=== PATIENT | female | born 1980 | race Caucasian/White ===

== ENCOUNTER 2019-11-05 21:30 | Inpatient (IN) | payer OTHER, SELFPAY ==
[2019-11-05] VITALS (14 sets, daily range): BP systolic 131–146; BP diastolic 81–96; PULSE 65–89; RESP 12–22; TEMP 36.7–36.8; O2SAT 97–100; BMI 29.0
--- NOTE | 2019-11-05 21:56 | ED_ITS ---
Entered by Rose Hernandes, acting as scribe for Stuart Mejia DO Nov 05, 2019 21:30 Documented by User: Cheli Perkins MD 11/06/19 01:31 HPI - Abdominal Pain General: Chief Complaint: Abdominal Pain Stated Complaint: abd pain Time Seen by Provider: 11/05/19 21:56 PFSH ED PFSH: Statuses (acute, chronic, etc) shown below reflect problem list status as previously entered and may not be historically accurate Medical History (Updated 11/06/19 @ 12:09 by Hermelindo Raymundo MD) No active medical problems (Acute) Surgical History (Updated 11/06/19 @ 12:08 by Hermelindo Raymundo MD) No history of previous surgery (Acute) Social History (Updated 11/06/19 @ 06:55 by Hermelindo Raymundo MD) Smoking and tobacco status: current every day smoker Alcohol intake: never Course Vital Signs: Vital signs: Vital Signs Temperature 97.9 F 11/06/19 14:30 Pulse Rate 87 11/06/19 17:10 Respiratory Rate 16 11/06/19 14:55 Blood Pressure 118/78 11/06/19 17:10 Pulse Oximetry 97 11/06/19 17:10 MDM - Abdominal Pain MDM Narrative: Medical decision making narrative: Patient presents with right upper quadrant pain. She does have an elevated white count and CT concerning for possible cholecystitis. I spoke to surgeon Dr. Raymundo will place patient on antibiotics and admit. Patient has been stable while here and has no signs of sepsis. Lab Data: Labs: Lab Results 11/05/19 11/05/19 11/05/19 Range/Units 21:50 21:50 22:05 WBC 17.7 H (4.0-10.0) 10^3/ uL RBC 4.74 (4.1-5.3) 10^6/u L Hgb 14.0 (11.5-15.3) g/dL Hct 41.0 (37.0-47.0) % MCV 86.5 (81-99) fL MCH 29.5 (28.0-34.0) pg MCHC 34.1 (30.0-36.0) g/dL RDW 12.1 (12.1-15.1) % Plt Count 399 (130-400) 10^3/c mm MPV 9.2 (7.4-10.4) fL Neut % (Auto) 80.9 % Lymph % (Auto) 9.5 % Anderson % (Auto) 7.5 % Eos % (Auto) 1.2 % Baso % (Auto) 0.3 % Neut # (Auto) 14.3 H (1.8-7.7) 10^3/u L Lymph # (Auto) 1.7 (0.8-4.8) 10^3/u L Anderson # (Auto) 1.3 H (0.2-0.9) 10^3/u L Eos # (Auto) 0.2 (0.0-0.8) 10^3/u L Baso # (Auto) 0.1 (0.0-0.1) 10^3/u L Nucleated RBC % (a uto) 0 % Nucleated RBCs # 0.0 /100WBC Sodium 138 (136-145) mmol/L Potassium 3.8 (3.5-5.1) mmol/L Chloride 100 (98-107) mmol/L Carbon Dioxide 26 (22-29) mmol/L Anion Gap 15.8 (5-19) BUN 12 (6-20) mg/dL Creatinine 0.6 (0.5-0.9) mg/dL GFR Calculation 110.2 (90-130) mL/min Glucose 118 H (74-109) mg/dL Calcium 9.9 (8.5-10.5) mg/dL Total Bilirubin 0.6 (0.15-1.2) mg/dL AST 18 (0-32) U/L ALT 16 (0-33) U/L Alkaline Phosphata se 68 (35-105) IU/L Total Protein 7.8 (6.6-8.7) g/dL Albumin 4.8 (3.5-5.2) g/dL Globulin 3.0 (1.3-4.6) g/dL Lipase 16 (13-60) U/L Urine Color Yellow (Yellow) Urine Appearance Sl hazy (CLEAR) Urine pH 5 (5-7) Ur Specific Gravit y 1.025 (1.005-1.030) Urine Protein Neg (Negative) Urine Glucose (UA) Norm (Normal) Urine Ketones 2+ H (Negative) Urine Occult Blood 3+ H (Negative) Urine Nitrate Negative (Negative) Urine Bilirubin Neg (NEGATIVE) Urine Urobilinogen Norm (Negative) mg/dL Ur Leukocyte Dominique ase Trace H (Negative) Urine RBC 10-15 H (0-2) /hpf Urine WBC 5-10 H (0-5) /hpf Ur Squamous Epith Cells 0-4 H (0-5) Urine Bacteria 2+ H (NONE) Urine Mucus 1+ Imaging Data ^: CT Abd/Pel: Radiologist's impression: Ordering Provider/Ordering MD: Stuart Mejia DO Date of Service: 11/05/19 Procedure(s): CT kidney stone 93174 Accession Number(s): [id number] Report Number: [id number] PROCEDURE INFORMATION: Exam: CT Abdomen And Pelvis Without Contrast Exam date and time: 11/05/2019 11:32 PM Age: 39 years old Clinical indication: Abdominal pain; Localized; Right upper quadrant (ruq); Additional info: Hematuria/r flank pain TECHNIQUE: Imaging protocol: Computed tomography of the abdomen and pelvis without contrast. Total DLP: 1027.74 mGy-cm Radiation optimization: All CT scans at this facility use at least one of these dose optimization techniques: automated exposure control; mA and/or kV adjustment per patient size (includes targeted exams where dose is matched to clinical indication); or iterative reconstruction. COMPARISON: No relevant prior studies available. FINDINGS: Lungs: There is subsegmental atelectasis in the lung bases. Liver: The liver is normal. Gallbladder and bile ducts: The gallbladder is dilated. The wall is subtly thickened. The common bile duct is mildly dilated measuring up to 11 mm diameter. No choledocholithiasis. Small dependent calcified stones are seen in the gallbladder lumen. Pancreas: The pancreas is unremarkable. Spleen: The spleen is unremarkable. Adrenals: The adrenal glands are unremarkable. Kidneys and ureters: There is a nonobstructive stone in the right kidney. There is a nonobstructive stone in the left kidney. There is no hydronephrosis or ureteral dilation. Stomach and bowel: The stomach is unremarkable. The small bowel is nondilated. There is no sign of inflammation. The colon is unremarkable. Appendix: The appendix is normal. Intraperitoneal space: There is no free air or significant intraperitoneal free fluid. Vasculature: The aorta is unremarkable. There is no aneurysm. Lymph nodes: There is no lymphadenopathy in the retroperitoneum, mesentery, pelvis or inguinal regions. Bladder: The urinary bladder is unremarkable. Reproductive: The uterus is unremarkable. There is no adnexal mass or large cyst. Bones/joints: Bones are unremarkable. Soft tissues: The abdominal wall is intact. CT/CT kidney stone [id number] IMPRESSION: 1. Dilated gallbladder containing stones with subtle wall thickening. These findings are suspicious for acute cholecystitis. 2. Bilateral nonobstructive nephrolithiasis. Discharge Plan Discharge Patient Disposition: Admitted As Inpatient Admit Provider: Hermelindo Raymundo Clinical Impression: Cholecystitis Condition: Stable Discharge Orders: Discharge Order (Routine); Ordered 11/06/19 Ordered By: Hermelindo Raymundo Referrals: Renate Meeks MD [Primary Care Provider] - Hermelindo Raymundo MD [Physician] - 7-10 days Discharge Diet: Advance as tolerated Discharge Activity: Limit activity as instructed Patient Instructions: Cholecystitis (DC) Additional Instructions: No lifting over 20 pounds, no repetitive bending or twisting, no strenuous pushing / pulling or other heavy activity. Ambulate regularly. May go up and down steps if needed. Nursing: Please call Dr. Raymundo's office ([phone]) and make an appointment for the patient to be seen next week. 1. Discharge to home today. 2. Appointment to see Dr. Raymundo in 7 days. 3. Bandages / bandaids off tomorrow, leave Steri-Strip(s) on, may shower. Discharge Date/Time: 11/06/19 07:20 Coding Level of Care Code ED Second Floor Operator for Chg Fwd Exam Problem Focused Documented by User: Stuart Mejia DO 11/07/19 13:16 HPI - Abdominal Pain General: Chief Complaint: Abdominal Pain Stated Complaint: abd pain Time Seen by Provider: 11/05/19 21:56 Source: patient Mode of arrival: ambulatory History of Present Illness: HPI narrative: 39 y/o female presents to the ED with complaint of RUQ pain. Pt states the pain moves into her back. She denies hx of kidney stones. Pt states she does not have pain with urination or blood in her urine. This has,reportedly, been going on since May 2019. elicited complaint: abdominal pain Location: RUQ Severity: moderate Radiation: back Exacerbating factors: movement Relieving factors: nothing Associated Symptoms: Denies chills, coffee ground emesis, constipation, GI cramping, diarrhea, dysuria, fever(s), heartburn, hematochezia, hematuria, hematemesis, melena, nausea, syncope and vomiting Review of Systems Const: Denies: fever, chills, body aches, fatigue, malaise or night sweats Eyes: Denies: change in vision or blurry vision ENMT: Denies: throat pain, oral sores/lesions, dental pain, nasal discharge or nasal congestion Card: Denies: chest pain, palpitations, irregular heart rhythm, edema, syncope, shortness of breath on exertion, shortness of breath when lying down or leg pain with exertion Resp: Denies: shortness of breath, productive cough, non-productive cough or wheezing GI: Reports: abdominal pain; Denies: nausea, vomiting, vomiting blood, coffee grounds in vomit, difficulty swallowing, heartburn/indigestion, diarrhea, constipation, cramping, blood in stool or black tarry stool : Denies: painful urination, urinary frequency, urinary urgency, urinary incontinence or blood in urine Musc: Reports: back pain; Denies: neck pain, extremity pain, extremity swelling, joint pain or joint swelling Skin/Breast: Denies: rash, itching or redness Neuro: Denies: headache, numbness in extremities, weakness in extremities, changes in sensation, lack of coordination, difficulty walking, frequent falls, dizziness, vertigo or confusion Psych: Denies: anxiety, depression, loss of interest, visual hallucinations, auditory hallucinations, suicidal ideation or homicidal ideation Endo: Denies: excessive urination, excessive thirst, tired all the time or cold intolerance Scott/Lymph: Denies: easy bruising, easy bleeding, petechiae, enlarged lymph nodes or tender lymph nodes PFSH ED PFSH: Statuses (acute, chronic, etc) shown below reflect problem list status as previously entered and may not be historically accurate Medical History (Updated 11/06/19 @ 12:09 by Hermelindo Raymundo MD) No active medical problems (Acute) Surgical History (Updated 11/06/19 @ 12:08 by Hermelindo Raymundo MD) No history of previous surgery (Acute) Social History (Updated 11/06/19 @ 06:55 by Hermelindo Raymundo MD) Smoking and tobacco status: current every day smoker Alcohol intake: never Physical Exam Const: COMMON NORMALS: oriented x3 and alert GENERAL APPEARANCE: cooperative, well kempt and well developed; not comfortable NUTRITIONAL APPEARANCE: overweight ORIENTATION/CONSCIOUSNESS: Yes awake, Yes oriented to person and Yes oriented to place HENMT: COMMON NORMALS: normocephalic, head/scalp atraumatic, external ears normal, EAC's normal, TM's normal bilaterally, external nose normal, moist oral mucous membranes and oropharynx normal HEAD & SCALP: normocephalic and atraumatic NOSE: external nose normal EXTERNAL EAR: Yes external ears normal EXTERNAL AUDITORY CANAL: EAC's normal TYMPANIC MEMBRANE: TM's normal bilaterally MOUTH: oral and palatal mucosa normal, lip normal and tongue normal THROAT: posterior oropharynx normal and tonsils normal Eye: COMMON NORMALS: PERRL, EOMs intact bilaterally, conjunctivae normal and no scleral icterus CONJUNCTIVA: Yes conjunctivae normal PUPIL: Yes PERRL Neck/C-Spine: COMMON NORMALS: full ROM, no lymphadenopathy, supple, no meningeal signs and thyroid normal THYROID: thyroid normal and asymmetrical Lymph: LYMPHATIC: no lymphadenopathy noted Resp: COMMON NORMALS: normal respiratory effort, no retractions, no use of accessory muscles and clear to auscultation bilaterally AUSCULTATION: clear to auscultation bilaterally Cardio: COMMON NORMALS: regular rate and regular rhythm RATE: regular rate RHYTHM: regular rhythm HEART SOUNDS: no murmurs GI: COMMON NORMALS: soft to palpation and no hepatosplenomegaly AUSCULTATION: Yes normoactive bowel sounds PALPATION: Yes soft, Yes tender Details: RUQ and other (epigastric) and Yes no hepatosplenomegaly Extremity: COMMON NORMALS: no clubbing, cyanosis or edema, no calf tenderness and no pedal edema Neuro: COMMON NORMALS: oriented x3 SENSORIUM/ORIENTATION: Yes alert, Yes oriented to person and Yes oriented to place MENINGEAL SIGNS: Yes no meningeal signs Psych: APPEARANCE: Yes well kempt Skin: COMMON NORMALS: no rashes or lesions noted and skin turgor normal GENERAL SKIN EXAM: no rashes or lesions noted and turgor normal Course ED course: Care transferred to Dr. Perkins at change of shift Vital Signs: Vital signs: Vital Signs Temperature 97.9 F 11/06/19 14:30 Pulse Rate 87 11/06/19 17:10 Respiratory Rate 16 11/06/19 14:55 Blood Pressure 118/78 11/06/19 17:10 Pulse Oximetry 97 11/06/19 17:10 MDM - Abdominal Pain Lab Data: Labs: Lab Results 11/05/19 11/05/19 11/05/19 Range/Units 21:50 21:50 22:05 WBC 17.7 H (4.0-10.0) 10^3/ uL RBC 4.74 (4.1-5.3) 10^6/u L Hgb 14.0 (11.5-15.3) g/dL Hct 41.0 (37.0-47.0) % MCV 86.5 (81-99) fL MCH 29.5 (28.0-34.0) pg MCHC 34.1 (30.0-36.0) g/dL RDW 12.1 (12.1-15.1) % Plt Count 399 (130-400) 10^3/c mm MPV 9.2 (7.4-10.4) fL Neut % (Auto) 80.9 % Lymph % (Auto) 9.5 % Anderson % (Auto) 7.5 % Eos % (Auto) 1.2 % Baso % (Auto) 0.3 % Neut # (Auto) 14.3 H (1.8-7.7) 10^3/u L Lymph # (Auto) 1.7 (0.8-4.8) 10^3/u L Anderson # (Auto) 1.3 H (0.2-0.9) 10^3/u L Eos # (Auto) 0.2 (0.0-0.8) 10^3/u L Baso # (Auto) 0.1 (0.0-0.1) 10^3/u L Nucleated RBC % (a uto) 0 % Nucleated RBCs # 0.0 /100WBC Sodium 138 (136-145) mmol/L Potassium 3.8 (3.5-5.1) mmol/L Chloride 100 (98-107) mmol/L Carbon Dioxide 26 (22-29) mmol/L Anion Gap 15.8 (5-19) BUN 12 (6-20) mg/dL Creatinine 0.6 (0.5-0.9) mg/dL GFR Calculation 110.2 (90-130) mL/min Glucose 118 H (74-109) mg/dL Calcium 9.9 (8.5-10.5) mg/dL Total Bilirubin 0.6 (0.15-1.2) mg/dL AST 18 (0-32) U/L ALT 16 (0-33) U/L Alkaline Phosphata se 68 (35-105) IU/L Total Protein 7.8 (6.6-8.7) g/dL Albumin 4.8 (3.5-5.2) g/dL Globulin 3.0 (1.3-4.6) g/dL Lipase 16 (13-60) U/L Urine Color Yellow (Yellow) Urine Appearance Sl hazy (CLEAR) Urine pH 5 (5-7) Ur Specific Gravit y 1.025 (1.005-1.030) Urine Protein Neg (Negative) Urine Glucose (UA) Norm (Normal) Urine Ketones 2+ H (Negative) Urine Occult Blood 3+ H (Negative) Urine Nitrate Negative (Negative) Urine Bilirubin Neg (NEGATIVE) Urine Urobilinogen Norm (Negative) mg/dL Ur Leukocyte Dominique ase Trace H (Negative) Urine RBC 10-15 H (0-2) /hpf Urine WBC 5-10 H (0-5) /hpf Ur Squamous Epith Cells 0-4 H (0-5) Urine Bacteria 2+ H (NONE) Urine Mucus 1+ Discharge Plan Discharge Patient Disposition: Admitted As Inpatient Admit Provider: Hermelindo Raymundo Clinical Impression: Cholecystitis Condition: Stable Discharge Orders: Discharge Order (Routine); Ordered 11/06/19 Ordered By: Hermelindo Raymundo Referrals: Renate Meeks MD [Primary Care Provider] - Hermelindo Raymundo MD [Physician] - 7-10 days Discharge Diet: Advance as tolerated Discharge Activity: Limit activity as instructed Patient Instructions: Cholecystitis (DC) Additional Instructions: No lifting over 20 pounds, no repetitive bending or twisting, no strenuous pushing / pulling or other heavy activity. Ambulate regularly. May go up and down steps if needed. Nursing: Please call Dr. Raymundo's office ([phone]) and make an appointment for the patient to be seen next week. 1. Discharge to home today. 2. Appointment to see Dr. Raymundo in 7 days. 3. Bandages / bandaids off tomorrow, leave Steri-Strip(s) on, may shower. Discharge Date/Time: 11/06/19 07:20 Coding Level of Care Code ED Second Floor Operator for Chg Fwd Exam Problem Focused The documentation recorded by the Cecilio whitfield Ashley, accurately reflects the service I personally performed and the decisions made by Roberto merchant Curtis L, Nov 05, 2019 21:30
[2019-11-05 22:23] LABS: Basophils # 0.1 10^3/uL (0.0-0.1); Basophils % 0.3 %; Eosinophils # 0.2 10^3/uL (0.0-0.8); Eosinophils % 1.2 %; Lymphocytes # 1.7 10^3/uL (0.8-4.8); Lymphocytes % 9.5 %; Mean Corpuscular HGB Conc 34.1 g/dL (30.0-36.0); Mean Corpuscular Hemoglobin 29.5 pg (28.0-34.0); Mean Corpuscular Volume 86.5 fL (81-99); Mean Platelet Volume 9.2 fL (7.4-10.4); Monocytes # 1.3 10^3/uL (0.2-0.9); Monocytes % 7.5 %; Neutrophils # 14.3 10^3/uL (1.8-7.7); Neutrophils % 80.9 %; Nucleated Red Blood Cells % 0 %; Platelet Count 399 10^3/cmm (130-400); Red Blood Count 4.74 10^6/uL (4.1-5.3); Red Cell Distribution Width 12.1 % (12.1-15.1); White Blood Count 17.7 10^3/uL (4.0-10.0)
[2019-11-05 22:38] LABS: Alanine Aminotransferase 16 U/L (0-33); Albumin Level 4.8 g/dL (3.5-5.2); Alkaline Phosphatase 68 IU/L (35-105); Anion Gap 15.8 (5-19); Aspartate Amino Transferase 18 U/L (0-32); Blood Urea Nitrogen 12 mg/dL (6-20); Calcium 9.9 mg/dL (8.5-10.5); Carbon Dioxide 26 mmol/L (22-29); Chloride 100 mmol/L (98-107); Glomerular Filtration Rate 110.2 mL/min (90-130); Glucose 118 mg/dL (74-109); Lipase 16 U/L (13-60); Potassium 3.8 mmol/L (3.5-5.1); Sodium 138 mmol/L (136-145); Total Bilirubin 0.6 mg/dL (0.15-1.2); Total Protein 7.8 g/dL (6.6-8.7)
[2019-11-05 22:38] LABS: Bilirubin Urine Neg (NEGATIVE); Blood Urine 3+ (Negative); Glucose Urine UA Norm (Normal); Ketones Urine 2+ (Negative); Nitrate Urine Negative (Negative); Protein Urine Neg (Negative); Specific Gravity, Urine 1.025 (1.005-1.030); Urine Appearance SL Hazy (CLEAR); Urine Color Yellow (Yellow); pH Urine 5 (5-7)
[2019-11-05 22:39] LABS: Add Urine Microscopic? YES; Leukocyte Esterase Urine Trace (Negative); Urobilinogen Urine Norm (Negative)
[2019-11-05 22:52] LABS: Bacteria Urine 2+; Mucus Urine 1+
[2019-11-05 22:53] LABS: Add Urine Culture? Yes; Squamous Epithelial Cell Urine 0-4 (0-5)
[2019-11-05] MEDS: morphine 4 mg/mL SDV 1 mL IVP (22:59)
[2019-11-05] MEDS: diphenhydrAMINE 50 mg/mL SDV 1mL 25 MG IVP (22:59)
[2019-11-05] MEDS: ondansetron 2 mg/ML SDV 2 mL 4 MG IVP (22:59)
[2019-11-05] MEDS: hydrocortisone 100 mg/2 mL SDV IVP (23:00)
[2019-11-05] MEDS: sodium chlor 0.9% + KCl 20 mEq 20 MEQ/1,000 ML BAG 125 MEQ IV (23:07)
[2019-11-05] MEDS: sodium chloride 0.9% 1,000 ML 999 ML IV (23:08)
--- NOTE | 2019-11-05 23:12 | CTR_ITS ---
PROCEDURE INFORMATION: Exam: CT Abdomen And Pelvis Without Contrast Exam date and time: 11/05/2019 11:32 PM Age: 39 years old Clinical indication: Abdominal pain; Localized; Right upper quadrant (ruq); Additional info: Hematuria/r flank pain TECHNIQUE: Imaging protocol: Computed tomography of the abdomen and pelvis without contrast. Total DLP: 1027.74 mGy-cm Radiation optimization: All CT scans at this facility use at least one of these dose optimization techniques: automated exposure control; mA and/or kV adjustment per patient size (includes targeted exams where dose is matched to clinical indication); or iterative reconstruction. COMPARISON: No relevant prior studies available. FINDINGS: Lungs: There is subsegmental atelectasis in the lung bases. Liver: The liver is normal. Gallbladder and bile ducts: The gallbladder is dilated. The wall is subtly thickened. The common bile duct is mildly dilated measuring up to 11 mm diameter. No choledocholithiasis. Small dependent calcified stones are seen in the gallbladder lumen. Pancreas: The pancreas is unremarkable. Spleen: The spleen is unremarkable. Adrenals: The adrenal glands are unremarkable. Kidneys and ureters: There is a nonobstructive stone in the right kidney. There is a nonobstructive stone in the left kidney. There is no hydronephrosis or ureteral dilation. Stomach and bowel: The stomach is unremarkable. The small bowel is nondilated. There is no sign of inflammation. The colon is unremarkable. Appendix: The appendix is normal. Intraperitoneal space: There is no free air or significant intraperitoneal free fluid. Vasculature: The aorta is unremarkable. There is no aneurysm. Lymph nodes: There is no lymphadenopathy in the retroperitoneum, mesentery, pelvis or inguinal regions. Bladder: The urinary bladder is unremarkable. Reproductive: The uterus is unremarkable. There is no adnexal mass or large cyst. Bones/joints: Bones are unremarkable. Soft tissues: The abdominal wall is intact. CT/CT kidney stone [id number] IMPRESSION: 1. Dilated gallbladder containing stones with subtle wall thickening. These findings are suspicious for acute cholecystitis. 2. Bilateral nonobstructive nephrolithiasis. Radiation Dose CTDIVOL = (mGy): DLP = 1027.74 (mGy-cm)
[2019-11-06] VITALS (59 sets, daily range): BP systolic 113–143; BP diastolic 68–91; PULSE 74–102; RESP 14–25; TEMP 36.6–37.4; O2SAT 94–100
[2019-11-06] MEDS: morphine 4 mg/mL SDV 1 mL IVP ×6 (00:05→10:30)
[2019-11-06] MEDS: levofloxacin-dextrose 5 % 750 MG/150 ML PREMIX 150 MG IV (00:45)
--- NOTE | 2019-11-06 06:20 | PC.NURSE ---
report called to shaina on
--- NOTE | 2019-11-06 06:32 | P.HP_ITS ---
Providers/Chief Complaint Admitting Physician: Hermelindo Raymundo MD Primary Care Provider: Renate Meeks MD Chief Complaint: CHOLECYSTIS History of Present Illness Clark Burrows is a 39 year old female who began having problems with upper abdominal pain perhaps 6 months ago. She said she noticed after she would eat or drink certain things that she would develop pain in the epigastrium or the right upper quadrant and have a pressure sensation with some bloating. She and her doctor initially thought this might be some gastric problems and so she has been on a proton pump inhibitor intermittently over the past several months. It got to the point where it was obvious it was not working. Her symptoms have gotten worse over the past week. She said that she developed right upper quadrant pain that went around to the right side of her back and about a week ago and basically has never gotten better. While she denies fever or chills, she has had multiple episodes of vomiting. She denies hematemesis. Review of Systems General: Reports: 10 or more systems reviewed and unremarkable except in HPI and below Const: Denies: fever GI: Reports: abdominal pain, nausea and vomiting; Denies: vomiting blood or change in stool character Medications/Allergies Allergies Allergy/AdvReac Type Severity Reaction Status Date / Time Penicillins Allergy ADR-Itching Verified 11/05/19 21:37 iv contrast dye Allergy ALGY-Swell Uncoded 11/05/19 21:37 Lip/Tongue/Throat PFSH Acute PFSH: Statuses (acute, chronic, etc) shown below reflect problem list status as previously entered and may not be historically accurate Medical History (Updated 11/06/19 @ 06:52 by Hermelindo Raymundo MD) No active medical problems (Acute) Surgical History (Updated 11/06/19 @ 06:52 by Hermelindo Raymundo MD) History of tubal ligation (Acute) Social History (Updated 11/06/19 @ 06:55 by Hermelindo Raymundo MD) Smoking and tobacco status: current every day smoker Alcohol intake: never Vitals/I&O/Wt Last Vital Signs Temp 98.2 F 11/05/19 21:44 Pulse 99 11/06/19 06:00 Resp 18 11/06/19 06:00 BP 127/75 11/06/19 06:00 Pulse Ox 98 11/06/19 06:00 11/05/19 11/05/19 11/06/19 14:59 22:59 06:59 Intake Total 1150 / 1150 Balance 1150 / 1150 Weight last 48 hrs Weight 164 lb Physical Exam Narrative: EXAM NARRATIVE: The patient was encountered in the emergency room awaiting a bed on the medical surgical floor. She appears as if she is not feeling well. The pupils are equal. No carotid bruits are heard. Lungs are clear. The heart is regular. The abdomen reveals hypoactive bowel sounds. She has significant tenderness in the right upper quadrant with a positive Holly sign. No obvious masses are palpated. The extremities reveal no edema. Neurologically the patient appears to be grossly intact. Data : 11/05/19 21:50 11/05/19 21:50 Other Labs: Laboratory Tests 11/05/19 21:50 Total Bilirubin 0.6 AST 18 ALT [address] Abd/Pel: Radiologist's impression: IMPRESSION: 1. Dilated gallbladder containing stones with subtle wall thickening. These findings are suspicious for acute cholecystitis. 2. Bilateral nonobstructive nephrolithiasis A&P Assessment and plan (1) Acute cholecystitis due to biliary calculus: I discussed gallbladder disease, cholelithiasis and cholecystitis with the patient. We discussed surgical and attempted conservative methods of m anagement. Surgical risks of bleeding, infection, internal organ injury, chances of an open procedure, postoperative bowel habit changes, etc. were all gone over. The patient seems to understand and would like to proceed with a cholecystectomy. Status: Acute Code(s): K80.00 - Calculus of gallbladder with acute cholecystitis without obstruction Attestations Medical Necessity Statement*: Based on my medical assessment, presenting symptoms, medical accuity and consideration of surgical therapy, I expect this patient will require treatment in the hospital for a period spanning at least 2 midnights. Coding Level of Care Code Acute Forge Operator Helper for Kierra Oleary Diagnoses Acute cholecystitis due to biliary calculus K80.00
--- NOTE | 2019-11-06 06:46 | PC.NURSE ---
dr capps to bedside. reviewed hx and poc at length. questions answered.
[2019-11-06] MEDS: sodium chloride 0.9% 1,000 ML 100 ML IV (08:30)
[2019-11-06] MEDS: ondansetron 2 mg/ML SDV 2 mL 4 MG IVP (08:46)
--- NOTE | 2019-11-06 09:41 | P.ANESASSM_ITS ---
Pre-Anesthetic Assessment Pre-Anesthetic Assessment: Height/Weight: Height 1.6 m Weight 74.389 kg Temp Pulse Resp BP Pulse Ox 98.6 F 78 17 143/83 100 11/06/19 08:18 11/06/19 08:18 11/06/19 08:30 11/06/19 08:18 11/06/19 08:18 Proposed Procedure: Operation Date: 11/06/19 16:30 Proposed Procedures p Laparoscopic Cholecystectomy(Not Applicable) - Hermelindo Raymundo MD Familial anesthetic complications: No history of anesthesia, no family complications Was Beta Roxana taken within 24 hours: N/A Social: Social History: No alcohol and No tobacco Exam: Pre-Anes Outpt Exam: alert, oriented x 3, clear to auscultation bilaterally and regular rate & rhythm Airway: Cervical ROM: WNL MP: 2 Dentition: Full Pulmonary: Pulmonary: None reported CV/HEM: CV/HEM: None reported : : None reported Hepatic: Hepatic: None reported GI: GI: None reported Metabolic: Metabolic: None reported Musc/skel: Musc/skel: None reported Neuropsych: Neuropsych: None reported Anesthetic Plan: ASA status: II Anesthesia: General Meds/Allergies Current Medications: Current Medications Generic Name Dose Route Start Last Admin Trade Name Freq PRN Reason Stop Dose Admin Potassium Chloride /Sodium Chloride 20 meq in 1,000 m ls @ 125 mls/hr 11/05/19 22:15 11/05/19 23:07 Sodium Chlor 0.9 % + Kcl 20 Meq IV 125 mls/hr .Q8H AMPARO Administration Sodium Chloride 1,000 mls @ 100 m ls/hr 11/06/19 07:30 11/06/19 08:30 Sodium Chloride 0.9% IV 100 mls/hr .Q10H AMPARO Administration Morphine Sulfate 4 mg 11/06/19 07:30 11/06/19 08:30 Morphine IVP 4 mg Q2H PRN Administration SEVERE PAIN Ondansetron HCl 4 mg 11/06/19 07:30 11/06/19 08:46 Zofran IVP 4 mg Q6H PRN Administration NAUSEA AND VOMITI NG PFSH Anesthesia PFSH: Medical History (Updated 11/06/19 @ 06:52 by Hermelindo Raymundo MD) No active medical problems (Acute) Surgical History (Updated 02/04/20 @ 06:52 by Hermelindo Raymundo MD) History of tubal ligation (Acute) Social History (Updated 11/06/19 @ 06:55 by Hermelindo Raymundo MD) Smoking and tobacco status: current every day smoker Alcohol intake: never Data Anesthesia CBC & Chem 7: 11/05/19 21:50 11/05/19 21:50 Other Labs: Laboratory Results - last 48 hr 11/05/19 11/05/19 11/05/19 21:50 21:50 22:05 WBC 17.7 H RBC 4.74 Hgb 14.0 Hct 41.0 MCV 86.5 MCH 29.5 MCHC 34.1 RDW 12.1 Plt Count 399 MPV 9.2 Neut % (Auto) 80.9 Lymph % (Auto) 9.5 [place] % (Auto) 7.5 Eos % (Auto) 1.2 Baso % (Auto) 0.3 Neut # (Auto) 14.3 H Lymph # (Auto) 1.7 [place] # (Auto) 1.3 H Eos # (Auto) 0.2 Baso # (Auto) 0.1 Nucleated RBC % (auto) 0 Nucleated RBCs # 0.0 Sodium 138 Potassium 3.8 Chloride 100 Carbon Dioxide 26 Anion Gap 15.8 BUN 12 Creatinine 0.6 GFR Calculation 110.2 Glucose 118 H Calcium 9.9 Total Bilirubin 0.6 AST 18 ALT 16 Alkaline Phosphatase 68 Total Protein 7.8 Albumin 4.8 Globulin 3.0 Lipase 16 Urine Color Yellow Urine Appearance Sl hazy Urine pH 5 Ur Specific [place] 1.025 Urine Protein Neg Urine Glucose (UA) Norm Urine Ketones 2+ H Urine Occult Blood 3+ H Urine Nitrate Negative Urine Bilirubin Neg Urine Urobilinogen Norm Ur Leukocyte Esterase Trace H Urine RBC 10-15 H Urine WBC 5-10 H Ur Squamous Epith Cells 0-4 H Urine Bacteria 2+ H Urine Mucus 1+ Cardiac Studies: No Data to Display
--- NOTE | 2019-11-06 11:49 | PC.NURSE ---
Pt to OR at this time for scheduled procedure
[2019-11-06] MEDS: sodium chloride 0.9% 1,000 ML 30 ML IV (12:00)
[2019-11-06 12:13] LABS: OR HCG Qualitative Urine Negative (Negative)
[2019-11-06] MEDS: clindamycin 900 MG/50 ML PREMIX 100 MG IV (12:13)
--- NOTE | 2019-11-06 12:54 | SUR.OPER ---
1230 - Pt's mom notified of surgery start via her cell phone.
--- NOTE | 2019-11-06 13:09 | PM.OP ---
Operative Report Date of procedure: November 06, 2019 Pre-op Diagnosis: Acute calculus cholecystitis. Post-op diagnosis: same Procedure Done: Laparoscopic cholecystectomy. Specimens removed/disposition: Gallbladder. Surgeon: Hermelindo Raymundo Anesthesia: General Estimated blood loss (mL): 25 Complications: None. Condition: stable Disposition: PACU Procedure: The patient was brought to the Operating Room and was placed in a supine position on the Operating Room table. General endotracheal anesthesia was induced. The abdomen was prepped and draped in a sterile fashion. A small vertical incision was carried out in the inferior aspect of the umbilicus. Blunt dissection was carried out down to the fascia, which was grasped with a Gene clamp. A stay suture of 0 Vicryl was placed on either side of the midline and the midline fascia was incised. The underlying peritoneum was opened bluntly and the Rob port was placed directly into the peritoneal cavity and was held in place with the inflatable balloon. The peritoneal cavity was insufflated with carbon dioxide. The laparoscope was used to inspect the abdominal cavity. The gallbladder was seen to be inflamed and distended. No other gross abnormalities were initially noted. A 5 millimeter port was placed in the epigastrium under direct vision. Two 5-millimeter ports were placed on the right side of the abdomen under direct vision. The gallbladder was very distended and a syringe and laparoscopic needle were used to remove 60 mL of somewhat cloudy yellow fluid from the gallbladder lumen to decompress it somewhat. The gallbladder was then grasped and was elevated. The gallbladder had some subacute adhesions to the body and infundibular region. These were taken down using blunt dissection with some cautery to maintain hemostasis. Blunt dissection and hydrodissection were carried out in the infundibular region of the gallbladder and the cystic duct and cystic artery were identified. The gallbladder was partially removed from the liver bed using cautery and the spatula to confirm the anatomy before the structures were clipped and divided. The gallbladder was then removed from the liver bed using cautery and the spatula. The plane between the gallbladder and the liver bed was very edematous and oozed somewhat throughout the procedure. A small hole was inadvertently made in the gallbladder during the dissection but no stones were seen to have been lost. After the gallbladder had been removed from the liver bed, the laparoscope was moved to the epigastric port and the gallbladder was removed from the peritoneal cavity through the umbilical port site after being placed in a laparoscopic bag. The stay sutures of Vicryl were tied to each other at the umbilicus. An additional figure of 0 Vicryl was placed, closing the defect so that it was airtight. The perihepatic spaces were irrigated with saline and the liver bed was reinspected. No ongoing problems were seen. The remaining ports were removed from the abdominal wall and the pneumoperitoneum was evacuated. All skin incisions were closed using inverted interrupted sutures of 4-0 Vicryl. Benzoin and Steri-Strips were placed over the incisions and Band-Aids followed. The patient was taken to the Recovery Area in stable condition postoperatively.
--- NOTE | 2019-11-06 13:22 | SUR.PHASEI ---
1319 PATIENT TO PACU AT THIS TIME VIA GURNEY FROM OR. RR EVEN AND UNLABORED. PLACED ON SIMPLE MASK AT 8L, SPO2 100%. PATIENT NOTED TO HAVE 4 STABS TO ABDOMEN, CLOSED WITH EXOFIN.
--- NOTE | 2019-11-06 14:01 | SUR.PHASEI ---
1347 PATIENT TO MED SURG VIA [facility]. DROWSY, ANSWERS ALL QUESTIONS APPROPRIATE. PATIENT AMBULATORY FROM GURNEY TO BED. 4 STABS, COVERED WITH BANDAIDS, CDI.
[2019-11-06] MEDS: dextrose 5%-sod chloride 0.45% 1,000 ML 100 ML IV (14:11)
--- NOTE | 2019-11-06 14:13 | PC.CHAP ---
Pastoral Care Encounter/Spiritual Assessment Type of Contact [] Declined radar repairer visit [] Patient/Family/Request visit [] Outpatient visit [] Follow-up visit [] Physician referral [] Code/Alert [] Routine visit [] Staff referral [] Actively dying [] Patient sleeping [] Family support [] [] Out of room [] Palliative care [] [] Receiving care in room [] Pre-surgical visit [] Trauma [] Long length of stay [] ICU visit [] Other: Relational/Emotional Strength [] Patient feels connected with others/family/visitors/staff [] Distress [] Loneliness/isolation [] Abandonment Spirituality of Patient [] Person of Kath [] Attends Yarsani of their Kath [] Believes in Prayer [] Reads Bible or Congregational materials [] There are Spiritual issues to be addressed Manager Combination Interventions [] Prayer [] Active listening [] Non-anxious presence [] Spiritual/emotional support [] Crisis/trauma care [] Spiritual counseling [] Bereavement support [] Provided bereavement packet [] Provided Bible/devotional materials [] Provided toy/stuffed animal, coloring book to patient or family member [] Provided Communion [] Anointing/Holland [] Salvation [] Completed spiritual assessment [] Other: Impact on Illness or Injury [] Angry [] Fearful [] Anxious [] Often cries [] Exhaustion [] Unable to work [] Unable to attend mu-ism [] Unable to walk/stand [] Unable to read [] Unable to drive [] Unable to eat/drink [] Unable to sleep [] Unable to be with family [] Patient intubated [] Other: Summary Time spent with patient Pastoral Care Encounter/Spiritual Assessment Type of Contact [] Declined radar repairer visit [] Patient/Family/Request visit [] Outpatient visit [] Follow-up visit [] Physician referral [] Code/Alert [] Routine visit [] Staff referral [] Actively dying [] Patient sleeping [] Family support [] [] Out of room [] Palliative care [] [] Receiving care in room [] Pre-surgical visit [] Trauma [] Long length of stay [] ICU visit [] Other: Relational/Emotional Strength [] Patient feels connected with others/family/visitors/staff [] Distress [] Loneliness/isolation [] Abandonment Spirituality of Patient [] Person of Kath [] Attends Yarsani of their Kath [] Believes in Prayer [] Reads Bible or Congregational materials [] There are Spiritual issues to be addressed Manager Combination Interventions [] Prayer [] Active listening [] Non-anxious presence [] Spiritual/emotional support [] Crisis/trauma care [] Spiritual counseling [] Bereavement support [] Provided bereavement packet [] Provided Bible/devotional materials [] Provided toy/stuffed animal, coloring book to patient or family member [] Provided Communion [] Anointing/Holland [] Salvation [] Completed spiritual assessment [] Other: Impact on Illness or Injury [] Angry [] Fearful [] Anxious [] Often cries [] Exhaustion [] Unable to work [] Unable to attend mu-ism [] Unable to walk/stand [] Unable to read [] Unable to drive [] Unable to eat/drink [] Unable to sleep [] Unable to be with family [] Patient intubated [] Other: Summary The patient was out of the room in recovery after surgery. The radar repairer prayed for her with her family. Time spent with patient 10 min.
--- NOTE | 2019-11-06 16:46 | PM.DCS ---
Discharge Providers Date of Admission: 11/06/19 00:32 Date of Discharge: Date of Discharge: November 06, 2019 Attending Provider at Admission: Hermelindo Raymundo MD Attending Provider at Discharge: Hermelindo Raymundo MD Primary Care Provider: Renate Meeks MD Diagnoses at Discharge Discharge Diagnosis (1) Acute cholecystitis due to biliary calculus: Status: Acute Reason for Visit Reason for Visit: Reason For Visit: CHOLECYSTIS Hospital Course Discharge Summary: The patient came to the emergency room on 11/05/2019 with a week history of right upper quadrant pain. Multiple imaging studies showed evidence of acute calculus cholecystitis. The patient was admitted and underwent a cholecystectomy on 11/06/2019. Even later that day she was feeling much better and was not requiring any pain medication. She was tolerating oral intake and was up ambulating in the halls and was anxious to go home. Arrangements were made for the patient to be discharged home in her request. She was instructed with respect to wound care, activity limitations, diet, etc. I will make arrangements for the patient to see me in my office next week. Physical Exam Narrative: EXAM NARRATIVE: All of the patient's laparoscopic incisions look good. Her abdomen shows the expected amount of tenderness. Discharge Data Data Completed and Pending: Completed Studies During Hospitalization Category Date Time Status CT kidney stone 7 [id number] Stat Cat Scan 11/05/19 23:12 Completed Pending at discharge Category Date Time Status Urine Culture Sta t Lab 11/05/19 22:05 Received Pathology: Surgic al [PTH] Routine Pth 11/06/19 12:42 Ordered Labs from last 24 hours 11/06/19 11/05/19 11/05/19 12:07 22:05 21:50 WBC RBC Hgb Hct MCV MCH MCHC RDW Plt Count MPV Neut % (Auto) Lymph % (Auto) [place] % (Auto) Eos % (Auto) Baso % (Auto) Neut # (Auto) Lymph # (Auto) [place] # (Auto) Eos # (Auto) Baso # (Auto) Nucleated RBC % (a uto) Nucleated RBCs # Sodium 138 Potassium 3.8 Chloride 100 Carbon Dioxide 26 Anion Gap 15.8 BUN 12 Creatinine 0.6 GFR Calculation 110.2 Glucose 118 H Calcium 9.9 Total Bilirubin 0.6 AST 18 ALT 16 Alkaline Phosphata se 68 Total Protein 7.8 Albumin 4.8 Globulin 3.0 Lipase 16 Urine Color Yellow Urine Appearance Sl hazy Urine pH 5 Ur Specific [place] 1.025 Urine Protein Neg Urine Glucose (UA) Norm Urine Ketones 2+ H Urine Occult Blood 3+ H Urine Nitrate Negative Urine Bilirubin Neg Urine Urobilinogen Norm Ur Leukocyte [place] a[place] Trace H Urine RBC 10-15 H Urine WBC 5-10 H Ur Squamous Epith Cells 0-4 H Urine Bacteria 2+ H Urine Mucus 1+ Urine HCG, Qual Negative 11/05/19 21:50 WBC 17.7 H RBC 4.74 Hgb 14.0 Hct 41.0 MCV 86.5 MCH 29.5 MCHC 34.1 RDW 12.1 Plt Count 399 MPV 9.2 Neut % (Auto) 80.9 Lymph % (Auto) 9.5 [place] % (Auto) 7.5 Eos % (Auto) 1.2 Baso % (Auto) 0.3 Neut # (Auto) 14.3 H Lymph # (Auto) 1.7 [place] # (Auto) 1.3 H Eos # (Auto) 0.2 Baso # (Auto) 0.1 Nucleated RBC % (a uto) 0 Nucleated RBCs # 0.0 Sodium Potassium Chloride Carbon Dioxide Anion Gap BUN Creatinine GFR Calculation Glucose Calcium Total Bilirubin AST ALT Alkaline Phosphata se Total Protein Albumin Globulin Lipase Urine Color Urine Appearance Urine pH Ur Specific [place] y Urine Protein Urine Glucose (UA) Urine Ketones Urine Occult Blood Urine Nitrate Urine Bilirubin Urine Urobilinogen Ur Leukocyte Dominique ase Urine RBC Urine WBC Ur Squamous Epith Cells Urine Bacteria Urine Mucus Urine HCG, Qual Vitals: Last Vital Signs Temp 97.9 F 11/06/19 14:30 Pulse 87 11/06/19 15:00 Resp 16 11/06/19 14:55 BP 118/78 11/06/19 15:00 Pulse Ox 97 11/06/19 15:00 Discharge Plan Discharge Patient Disposition: Home, Self-Care Condition: Stable Discharge Orders: Discharge Order (Routine); Ordered 11/06/19 Ordered By: Hermelindo Raymundo Referrals: Renate Meeks MD [Primary Care Provider] - Breanne,Hermelindo Cornejo MD [Physician] - 7-10 days Discharge Diet: Advance as tolerated Discharge Activity: Limit activity as instructed Activity Restrictions/Additional Instructions: No lifting over 20 pounds, no repetitive bending or twisting, no strenuous pushing / pulling or other heavy activity. Ambulate regularly. May go up and down steps if needed. Nursing: Please call Dr. Raymundo's office ([phone]) and make an appointment for the patient to be seen next week. 1. Discharge to home today. 2. Appointment to see Dr. Raymundo in 7 days. 3. Bandages / bandaids off tomorrow, leave Steri-Strip(s) on, may shower. Discharge Attestations Time Spent in Discharge Care*: less than 30 min Quality Metrics Clinical Quality Measures During this hospital stay, did patient experience: None Coding Level of Care Code Acute Configuration Management Specialist for [employer] Diagnoses Acute cholecystitis due to biliary calculus K80.00
== END 2019-11-06 17:34 | disposition home or self-care (01) | DRG 419 ==
LOC: ER 11-06 02:11 → MEDSURG 11-06 06:16
PROVIDERS: Admitting Provider Surgery; Emergency Provider Emergency Medicine; Family Provider Family Medicine; PCP Family Medicine; Visit Provider Surgery
PROC: 0FT44ZZ Resection of Gallbladder, Percutaneous Endoscopic Approach (ICD-10-PCS; CPT 47562; principal; 2019-11-06 13:00)
DX: K80.00 Calculus of gallbladder with acute cholecystitis without obstruction (principal); Z88.0 Allergy status to penicillin; Z91.041 Radiographic dye allergy status
CPT/HCPCS: 12345; 36415; 74176; 80053; 81001; 81025; 83690; 84703; 85025; 87077; 87086; 87186; 88304; 96360; 96365; 96374; 96375; 99284; A9270; J1100; J1200; J1720; J1956; J2001; J2270; J2405; J2704; J3010; J3490; J7030; J7799

== ENCOUNTER 2023-02-16 11:04 | Outpatient (CLI) | payer OTHER, SELFPAY ==
--- NOTE | 2023-02-16 11:25 | MM_ITS ---
WS: [id number] Bilateral screening 3D tomosynthesis digital mammogram, 02/16/2023 Clinical Data: SCREENING Comparison: None. Findings: The breast parenchymal pattern shows very Junious density. No spiculated masses or clustered calcific ations are seen. There are no secondary signs of carcinoma. MM/[place] [id number] Impression: 1. Negative bilateral mammogram no prior exam for review. 2. Recommend annual screening mammograms. BIRADS: 1-Negative FOLLOW UP: 1 Year Follow-up The CAD process checker was used.
== END 2023-02-16 11:05 | disposition home or self-care (01) ==
PROVIDERS: Family Provider Family Medicine; PCP Family Medicine; Visit Provider Family Medicine
DX: Z12.31 Encounter for screening mammogram for malignant neoplasm of breast (principal)
CPT/HCPCS: 77063; 77067

== ENCOUNTER 2025-02-21 12:41 | Outpatient (CLI) | payer OTHER, SELFPAY ==
--- NOTE | 2025-02-21 12:40 | MM_ITS ---
WS: [id number] BILATERAL SCREENING DIGITAL TOMOSYNTHESIS MAMMOGRAM WITH CAD HISTORY: SCREENING COMPARISON: 02/16/2023, 07/26/2019 Bilateral CC and MLO views with tomosynthesis and synthetic mammography submitted. Computer aided detection analyzed. Breast composition: The breasts are heterogeneously dense, which may obscure small masses. No suspicious masses, microcalcifications or architectural distortion. Numerous scattered densities and a few scattered benign calcifications within each breast are stable. MM/MM [facility] tomosynthesis [id number] IMPRESSION: BI-RADS: 2 - Benign FOLLOW UP: 1 Year Follow-up
== END 2025-02-21 12:42 | disposition home or self-care (01) ==
LOC: MOBLMAM 12:47
PROVIDERS: PCP Nurse Practitioner Family; Visit Provider Nurse Practitioner Family
DX: Z12.31 Encounter for screening mammogram for malignant neoplasm of breast (principal); R92.333 Mammographic heterogeneous density, bilateral breasts; N64.89 Other specified disorders of breast; R92.1 Mammographic calcification found on diagnostic imaging of breast
CPT/HCPCS: 77063; 77067

== ENCOUNTER 2025-03-06 08:26 | Day surgery (SDC) | payer OTHER, SELFPAY ==
[2025-03-06 08:43] VITALS: BP 150/85; PULSE 75; RESP 16; TEMP 36.3; O2SAT 98
[2025-03-06 08:44] LABS: OR HCG Qualitative Urine Negative (Negative)
--- NOTE | 2025-03-06 08:44 | W.PM.OPSUD ---
Surgery/Procedure H&P Update DATE OF PROCEDURE: March 06, 2025 DATE H&P PERFORMED: 02/19/25 H&P UPDATE INFORMATION: I have reviewed H&P completed within last 30 days, I have examined patient prior to procedure, No changes to prior documentation, H&P is in [facility] EMR on date indicated and Risks and benefits of the procedure reviewed PLANNED PROCEDURE: Operation Date: 03/06/25 09:55 Proposed Procedures p Colonoscopy [id number] G0121 Z12.11(Not Applicable) - Tarik Boothe MD
[2025-03-06] MEDS: sodium chloride 0.9% 1,000 ML 15 ML IV (08:45)
--- NOTE | 2025-03-06 08:53 | ANES.PREANE2 ---
Pre-Anesthetic Assessment Height/Weight: Height 1.6 m Weight 83.915 kg Temp Pulse Resp BP Pulse Ox O2 Del Method 97.4 F L 75 16 150/85 98 Room Air 03/06/25 08:43 03/06/25 08:43 03/06/25 08:43 03/06/25 08:43 03/06/25 08:43 03/06/25 08:43 Preop Diagnosis: screening Operation Date: 03/06/25 09:55 Proposed Procedures p Colonoscopy [id number] G0121 Z12.11(Not Applicable) - Tarik Boothe MD Familial anesthetic complications: none Was Beta Roxana taken within 24 hours: N/A Was Clonidine taken within 24 hours: N/A Last intake: Intake Last Liquid Date 03/05/25 Last Liquid Time 22:30 Last Solid Date 03/04/25 Last Solid Time 17:30 Social No alcohol and No tobacco Exam alert and oriented x 3 Airway Submandibular: within normal limits Cervical ROM: within normal limits Mallampati: Class II Dentition: full History/ROS No significant complaints Anesthetic Plan ASA status: 1 Anesthesia: Anesthesia Evaluation and MAC Medications/Allergies Home Medications ?Medication ?Instructions ?Recorded ?Confirmed ?Last Taken ?Type norgestimate-ethinyl estradiol 0.035 tab PO DAILY 02/19/25 03/04/25 03/04/25 History 0.18mg/0.215mg/0.25mg-0.035mg(28)tablet sertraline 25 mg tablet 25 mg PO DAILY 02/19/25 03/04/25 03/04/25 History Allergies Allergy/AdvReac Type Severity Reaction Status Date / Time Iodinated Contrast Media Allergy Severe ALGY-Swell Verified 03/04/25 09:21 Lip/Tongue/Throat Penicillins Allergy ADR-Itching Verified 03/04/25 09:21 Current Medications Generic Name Dose Route Start Last Admin Trade Name Freq PRN Reason Stop Dose Admin Sodium Chloride 1,000 mls @ 15 mls/hr 03/06/25 08:31 03/06/25 08:45 Sodium Chloride 0.9% IV 03/07/25 08:30 15 mls/hr .Q24H PRN Administration COLONOSCOPY FLUIDS PFSH Anesthesia Medical History No active medical problems Surgical History No history of previous surgery Social History Smoking and tobacco/nicotine status: never used tobacco/nicotine Alcohol intake: never Female Reproductive History Date of last menstrual period: 02/05/25
[2025-03-06 09:37] VITALS: BP 110/65; PULSE 65; RESP 17; TEMP 36.3; O2SAT 95
--- NOTE | 2025-03-06 09:42 | ANE.PACU2 ---
Inpatient post-anesthesia follow up: Airway intact: Yes Vital signs: Temperature 97.4 F Pulse Rate 75 Respiratory Rate 16 Blood Pressure 150/85 Pulse Oximetry 98 Oxygen Delivery Me thod Room Air Oxygen Flow Rate Fraction of Inspir ed Oxygen Hydration adequate: Yes Nausea and vomiting: No Pain level: 1 Mental status: Baseline
[2025-03-06 09:45] VITALS: BP 117/70; PULSE 73; RESP 16; O2SAT 97
[2025-03-06 09:55] VITALS: BP 136/83; PULSE 64; RESP 18; O2SAT 98
== END 2025-03-06 10:10 | disposition home or self-care (01) ==
PROVIDERS: Student in an Organized Health Care Education/Training Program; PCP Nurse Practitioner Family; Visit Provider Surgery
PROC: 0DJD8ZZ Inspection of Lower Intestinal Tract, Via Natural or Artificial Opening Endoscopic (ICD-10-PCS; CPT 45378; principal; 2025-03-06 09:55)
DX: Z12.11 Encounter for screening for malignant neoplasm of colon (principal); Z79.899 Other long term (current) drug therapy; Z88.0 Allergy status to penicillin; Z91.041 Radiographic dye allergy status
CPT/HCPCS: 45378; 81025; J2704; J7030